=== PATIENT | female | born 1945 | race Caucasian/White ===

== ENCOUNTER → 2018-06-16 12:46 | Outpatient (CLI) | payer MEDICARE, SELFPAY | PROVIDERS: Family Provider Internal Medicine; PCP Internal Medicine; Visit Provider Internal Medicine | DX: E04.1 Nontoxic single thyroid nodule (principal) | CPT/HCPCS: 76536 ==

== ENCOUNTER → 2018-07-01 09:00 | Outpatient (CLI) | payer MEDICARE, SELFPAY ==
--- NOTE | 2018-07-01 09:00 | ASPS_PTH ---
PATIENT: JAN BURKS LOC: PHI U#:[id number] AGE/SX: 79/F ROOM: RE07/01/[address]: Dr. León Woo MD : 1945 BED: DIS: SPEC #: [id number] RECD: 07/01/18 11:29 STATUS: ZAHIRA RESerafin #: [id number] ITA: 07/01/18 09:[address]: León Woo DEPT: CYTOLOGY RECD BY: Trevor Silverman ENTERED: 07/03/18 10:47 SP TYPE: ASPIRATION OTHR DR: Dr. Kate Molina, DO Tissues: A - Thyroid gland, NOS B - Thyroid gland, NOS Procedures: Pap Stain (control) Special Stain Group II Cytology Other HEADER OPERATION: Fine needle aspiration of bilateral thyroid nodules PRE-OP DIAGNOSIS: Multinodular goiter (nontoxic) E04.2 TISSUE SUBMITTED: A ? Right thyroid nodule 12 slides, B ? Left thyroid nodule 12 slides DIAGNOSIS CYTOLOGY A. Fine needle aspiration, right thyroid nodule (smears): Adequate for evaluation. Consistent with follicular nodule with chronic lymphocytic thyroiditis. Minimal colloid material present. B. Fine needle aspiration, left thyroid nodule (smears): Adequate for evaluation. Negative, consistent with benign colloid nodule. AM:madi 07/04/18 CYTOLOGY STUDY Slides are reviewed. CYTOLOGY GROSS A. Received are 12 smears labeled with the patient's name and designated per the requisition as right thyroid nodule. Submitted for staining. B. Received are 12 smears labeled with the patient's name and designated per the requisition as left thyroid nodule. Submitted for staining. 07/03/18 TC:5 CPT: 07809 x2
== END ==
PROVIDERS: Family Provider Internal Medicine; PCP Internal Medicine; Visit Provider Surgery
DX: E04.2 Nontoxic multinodular goiter (principal)
CPT/HCPCS: 88161; 88313

== ENCOUNTER → 2019-03-20 | Outpatient (CLI) | payer MEDICARE, SELFPAY ==
[2018-06-21 14:54] VITALS: BMI 28.3
--- NOTE | 2019-03-20 11:30 | LES_PTH ---
PATIENT: JAN BURKS LOC: PHI U#:[id number] AGE/SX: 73/F ROOM: RE03/20/[address]: Dr. Jaswinder Bach MD : 1945 BED: DIS: 03/20/2019 SPEC #: [id number] RECD: 03/20/19 12:11 STATUS: ZAHIRA WENDI #: [id number] ITA: 03/20/19 11:[address]: Jaswinder Bach DEPT: SURGICAL PATHOLOGY RECD BY: Dipika Noyola ENTERED: 03/20/19 13:41 SP TYPE: Lesion OTHR DR: Dr. Kate Molina, DO Tissues: Skin of face, NOS Procedures: Surgery Specimen Level IV HEADER OPERATION: Excisional biopsy of cheek lesion PRE-OP DIAGNOSIS: Slow growth, nonhealing lesion, suspect basal cell cancer TISSUE SUBMITTED: LLL lesion MICROSCOPIC DIAGNOSIS Left lower eyelid lesion, biopsy: Consistent with seborrheic keratosis. AM:madi 03/21/19 MICROSCOPIC DESCRIPTION Slides are reviewed. GROSS DESCRIPTION Received is one container labeled with the patient's name and not further designated. The specimen consists of an irregular fragment of light euceda soft tissue measuring 0.5 x 0.3 x 0.1 cm. The specimen is totally submitted in one cassette. / AM:madi 03/20/19 TC:5 CPT: 52783
== END | disposition home or self-care (01) ==
PROVIDERS: Family Provider Internal Medicine; PCP Internal Medicine; Referring Provider Ophthalmology; Visit Provider Ophthalmology
DX: L98.9 Disorder of the skin and subcutaneous tissue, unspecified (principal)
CPT/HCPCS: 88305

== ENCOUNTER → 2019-04-17 | Outpatient (CLI) | payer MEDICARE, SELFPAY ==
[2018-06-21 14:54] VITALS: BMI 28.3
--- NOTE | 2019-04-17 10:55 | BD_ITS ---
STUDY: DUAL ENERGY X-RAY ABSORPTIOMETRY / DXA REASON FOR EXAM: Female, 73 years old. The patient is postmenopausal. Loss of height. TECHNIQUE: Bone Mineral Density (BMD) measurements of lumbar spine and bilateral hips were obtained. COMPARISON: Comparison is made with prior study dated March 01, 2017. FINDINGS: Lumbar Spine (L1-L4): g/cm2 (0.894) / T-score (-2.4) / Z-score (-0.7) Findings are suggestive of osteopenia with a high fracture risk. Left Femur Total: g/cm2 (0.762) / T-score (-1.9) / Z-score (-0.4) Left Femoral Neck: g/cm2 (0.674) / T-score (-2.6) / Z-score (-0.8) Right Femur Total: g/cm2 (0.761) / T-score (-2.0) / Z-score (-0.4) Right Femoral Neck: g/cm2 (0.698) / T-score (-2.4) / Z-score (-0.6) The T-Scores on the most recent prior examination were: Lumbar Spine (L1-L4): There has been improvement of bone density since the previous examination. Left Femur Total: which represents a worsening of 1.8%. Right Femur Total: which represents a worsening of 0.9%. BD/Dexa Bone Density Study IMPRESSION: The patient is considered osteoporotic as outlined below according to World Noah Organization (WHO) criteria with a high fracture risk. There has been worsening of bone density since the previous examination. Reference Information: The T-score is the number of standard deviations above or below the standard which is normal for young adults at their peak bone mineral density. The World Health Organization (WHO) interprets the T-scores as follows: Above -1 Normal bone density Between -1 and -2.5 Osteopenia Equal to / or below -2.5 Osteoporosis As a practical clinical guideline, osteopenia may be graded as follows: Mild -1 through -1.5 Moderate -1.6 through -2.0 Severe -2.1 through -2.4 The Z-score is the number of standard deviations above or below age-matched controls. A Z-score of less than -1.5 would be considered abnormal. References: 1. NIH Osteoporosis and Related Bone Diseases http://www.osteo.org 2. International Society for Clinical Densitometry http://www.iscd.org 3. National Osteoporosis Foundation http://www.nof.org Electronically Signed: Collin Rasmussen, at 15:45 EDT , Service support ,
== END | disposition home or self-care (01) ==
LOC: OPBD 10:34
PROVIDERS: Family Provider Internal Medicine; PCP Internal Medicine; Referring Provider Internal Medicine; Visit Provider Internal Medicine
DX: Z78.0 Asymptomatic menopausal state (principal)
CPT/HCPCS: 77080

== ENCOUNTER → 2019-05-09 | Outpatient (CLI) | payer SELFPAY ==
[2018-06-21 14:54] VITALS: BMI 28.3
--- NOTE | 2019-05-09 14:53 | CT_ITS ---
tyHISTORY: Hyperlipidemia, calcium scoring, limited chest over read CT Heart Quantitative coronary calcium W/O contrast TECHNIQUE: Cone-down chest CT axial imaging performed without contrast to assess calcium scoring. # of images incl. paperwork: 136 COMPARISON: Chest x-ray 02/02/2016 FINDINGS: CALCIUM SCORE: Reported separately. HEART SCAN FINDINGS: The heart is normal in size.No pericardial effusion, small amount of fluid within the pericardial recess..Visualized thoracic aorta is non-aneurysmal. LUNG SCAN FINDINGS: Upper and lower lung loya not included in the study.Visualized lungs are unremarkable without evidence of consolidation, mass, significant nodularity, or interstitial lung disease. OTHER: Visualized osseous structures demonstrate no destructive sclerotic or lytic lesions. CT/Limited Chest CT w/CCTA IMPRESSION: 1. Unremarkable exam. Individualized dose optimization techniques were used for this CT. at 1625 Reported and signed by: Axel Velázquez MD Electronically Signed: Axel Velázquez MD at 16:24 EDT Tel , Service support ,
[2019-05-09 15:02] VITALS: BP 107/68; PULSE 58; RESP 16; O2SAT 100; BMI 28.3
--- NOTE | 2019-05-10 09:59 | CA.SCORE ---
Calcium Scoring Date of Study:: 05/09/19 Coronary Calcium Scoring: High-resolution Computed Tomographic imaging of the chest was performed on [ ], with particular attention paid to the coronary arteries. Images from the examination were analyzed for the presence and extent of coronary artery calcification , using coronary calcium quantification software. The patient tolerated the procedure well and there were no complications. The results of the coronary calcification analysis are provided below. - Findings Left Main (LM): 0 Left Anterior Descending (LAD): 11.1 Left Circumflex (LCX): 0 Right Coronary Artery (RCA): 0 Total Agatston Score: 11.1 Percentile Rankin - Conclusion Calcium Scoring Interpretation: Calcium Score Interpretation 11-100 Mild plaque burden. Likely mild or minimal coronary atherosclerosis.
== END | disposition home or self-care (01) ==
LOC: CT 14:48
PROVIDERS: Family Provider Internal Medicine; PCP Internal Medicine; Referring Provider Internal Medicine; Visit Provider Internal Medicine
DX: E78.5 Hyperlipidemia, unspecified (principal)
CPT/HCPCS: 75571; 76380

== ENCOUNTER → 2019-06-11 | Outpatient (CLI) | payer MEDICARE, SELFPAY ==
[2019-05-09 15:02] VITALS: BMI 28.3
--- NOTE | 2019-06-11 10:20 | US_ITS ---
STUDY: THYROID ULTRASOUND REASON FOR EXAM: Female, 73 years old. Thyroid nodules TECHNIQUE: Ultrasound evaluation of the thyroid was performed with real-time and static romano-scale imaging. COMPARISON: June 16, 2018, August 20, 2016 thyroid ultrasound FINDINGS: RIGHT LOBE: The right lobe of the thyroid gland measures 4.7 x 1.8 x 2.4 cm. There is a heterogeneous echotexture. Is a lobulated appearance of the right side thyroid gland with no particular dominant mass. There is a 6 x 5 x 3 mm small nodule with a hypoechoic periphery and a hyperechoic center. There is a lobulated enlarged appearance of the thyroid gland with areas of increased vascularity. LEFT LOBE: The left lobe of the thyroid gland measures 5.3 x 2.6 x 2.8 cm. There is a heterogeneous echotexture. On the left side there is a dominant appearing inhomogeneous nodule that measures 3.7 x 2.4 cm this is relatively similar in appearance to the prior studies. ISTHMUS: The isthmus measures 1.8 cm. This measurement includes a well-circumscribed nodule that measures 2.2 x 1.9 x 1.0 cm stable since prior studies. The regional lymph nodes are normal. US/Thyroid IMPRESSION: Thyroid goiter with a stable dominant mass in the left side and within the isthmus. Electronically Signed: Sarah Rahman MD at 17:11 EDT Tel , Service support ,
== END | disposition home or self-care (01) ==
LOC: US 10:19
PROVIDERS: Family Provider Internal Medicine; PCP Internal Medicine; Referring Provider Internal Medicine; Visit Provider Internal Medicine
DX: E04.1 Nontoxic single thyroid nodule (principal)
CPT/HCPCS: 76536

== ENCOUNTER → 2020-06-18 09:08 | Outpatient (CLI) | payer MEDICARE, SELFPAY ==
[2019-05-09 15:02] VITALS: BMI 28.3
--- NOTE | 2020-06-18 09:11 | US_ITS ---
STUDY: THYROID ULTRASOUND REASON FOR EXAM: Female, 74 years old. Follow-up NODULE TECHNIQUE: Ultrasound evaluation of the thyroid was performed with real-time and static romano-scale imaging. COMPARISON: 06/11/2019 FINDINGS: RIGHT LOBE: The right lobe of the thyroid gland measures 5.2 x 2.0 x 1.7 cm. There is a heterogeneous echotexture. There are scattered stable nodules the largest measuring up to 6 x 3 x 5 mm unchanged since the prior examination. LEFT LOBE: The left lobe of the thyroid gland measures 5.5 x 2.4 x 3.0 cm. There is a heterogeneous echotexture. There is a stable dominant nodule within the left lobe of the gland measuring 4.0 x 2.2 x 2.2 cm. ISTHMUS: The isthmus measures 6.0 mm. There is a stable well-circumscribed nodule within the isthmus right of midline measuring 2.3 x 1.9 x 1.0 cm. US/Thyroid IMPRESSION: Enlarged heterogenous thyroid suggestive of a history of thyroiditis. Stable bilateral thyroid nodules. Electronically Signed: Nuria Arambula MD at 21:46 EDT Tel , Service support ,
== END ==
PROVIDERS: PCP Internal Medicine; Referring Provider Internal Medicine; Visit Provider Internal Medicine
DX: E04.1 Nontoxic single thyroid nodule (principal)
CPT/HCPCS: 76536

== ENCOUNTER 2023-05-20 07:51 | Outpatient (CLI) | payer MEDICARE, SELFPAY ==
[2023-05-20 09:59] LABS: Absolute Lymphocyte Count 1.93 X10^3/uL (0.83-4.51); Absolute Neutrophil Count 2.2 X10^3/uL (2.0-7.7); Basophil# 0.02 X10^3/uL; Basophil% 0.4 % (0-1); Eosinophil# 0.05 X10^3/uL; Eosinophils% 1.1 % (0-5); Hematocrit 40.3 % (37-47); Hemoglobin 13.3 g/dL (12.0-15.0); Lymphocyte # 1.93 X10^3/ul (0.83-4.51); Lymphocyte % 41.2 % (19-41); Mean Corpuscular Hgb 30.7 pg (27.0-32.0); Mean Corpuscular Volume 93.1 fL (81-99); Mean Platelet Vol. 9.3 fl (6.2-12.0); Monocyte# 0.48 X10^3/uL; Monocyte% 10.3 % (0-10); NRBC Flagged by Analyzer 0 % (0-5); Neutrophil # 2.19 X10^3/uL (2.7-7.7); Neutrophil % 46.8 % (47-70); Platelet Count 338 K/mm3 (150-450); RBC Distribution Width CV 12.2 % (11.6-14.6); RBC Distribution Width SD 42.5 fl (35.1-43.9); Red Blood Count 4.33 M/mm3 (4.2-5.4); White Blood Count 4.7 K/mm3 (4.4-11.0)
[2023-05-20 10:13] LABS: Vitamin B12 670 pg/mL (211-911); Vitamin D,25 Hydroxy 64.3 ng/mL
[2023-05-20 10:31] LABS: ALB/GLOB Ratio 1.1 RATIO (0.9-2.4); AST(SGOT) 20 U/L (15-37); Alanine Aminotransfer ALT/SGPT 24 U/L (13-56); Albumin, Serum 3.8 g/dL (3.2-5.0); Alkaline Phosphatase 86 U/L (45-117); Anion Gap 7 (5-15); BUN 9 mg/dL (7-18); BUN/Creat Ratio 14.2 RATIO (10-20); Calcium,Total 9.2 mg/dL (8.5-10.1); Chloride 101 mmol/L (98-107); Cholesterol 207 mg/dL (200); Creatinine, Serum 0.63 mg/dL (0.55-1.02); EST Glomerular Filtration Rate 97 mL/min (>60); Est Glom Filt Rate - Afr Amer 117 mL/min (>60); Ferritin 55 ng/mL (8-252); Globulin 3.5 g/dL (2.2-4.2); Glucose 91 mg/dL (74-106); High Density Lipoprotein 61 mg/dL; Potassium 3.7 mmol/L (3.5-5.1); Protein, Total 7.3 g/dL (6.4-8.2); Sodium Level 134 mmol/L (136-145); Thyroid Stim Hormone (TSH) 2.19 uIU/mL (0.358-3.74); Triglycerides 58 mg/dL; Very Low Density Lipoprotein 12 mg/dL (5-40)
== END 2023-05-20 23:59 | disposition home or self-care (01) ==
LOC: MTLAB 07:54
PROVIDERS: PCP Family Medicine; Referring Provider Family Medicine; Visit Provider Family Medicine
DX: Z13.220 Encounter for screening for lipoid disorders (principal); E03.9 Hypothyroidism, unspecified; Z78.9 Other specified health status; M81.0 Age-related osteoporosis without current pathological fracture
CPT/HCPCS: 36415; 80050; 80053; 80061; 82306; 82607; 82728; 84443; 85025

== ENCOUNTER → 2023-06-14 | Outpatient (CLI) | payer MEDICARE, SELFPAY ==
--- NOTE | 2023-06-14 14:54 | BD_ITS ---
STUDY: DUAL ENERGY X-RAY ABSORPTIOMETRY / DXA REASON FOR EXAM: Female, 77 years old. M810 TECHNIQUE: Bone Mineral Density (BMD) measurements of lumbar spine and bilateral hips were obtained. COMPARISON: Comparison is made with prior study dated April 17, 2019. FINDINGS: Lumbar Spine (L1-L4): g/cm2 (0.757) / T-score (-2.6) / Z-score (-0.1) Findings are suggestive of osteoporosis with a high fracture risk. Left Femur Total: g/cm2 (0.658) / T-score (-2.3) / Z-score (-0.4) Left Femoral Neck: g/cm2 (0.518) / T-score (-3.0) / Z-score (-0.8) Right Femur Total: g/cm2 (0.654) / T-score (-2.4) / Z-score (-0.5) Right Femoral Neck: g/cm2 (0.528) / T-score (-2.9) / Z-score (-0.7) The T-Scores on the most recent prior examination were: Lumbar Spine (L1-L4): There has been worsening of bone density since the previous examination. Left Femur Total: which represents a worsening of 6.4%. Right Femur Total: which represents a worsening of 6.9%. BD/Dexa Bone Density Study IMPRESSION: The patient is considered osteoporotic as outlined below according to World [place] Organization (WHO) criteria with a high fracture risk. There has been worsening of bone density since the previous examination. Reference Information: The T-score is the number of standard deviations above or below the standard which is normal for young adults at their peak bone mineral density. The World Health Organization (WHO) interprets the T-scores as follows: Above -1 Normal bone density Between -1 and -2.5 Osteopenia Equal to / or below -2.5 Osteoporosis As a practical clinical guideline, osteopenia may be graded as follows: Mild -1 through -1.5 Moderate -1.6 through -2.0 Severe -2.1 through -2.4 The Z-score is the number of standard deviations above or below age-matched controls. A Z-score of less than -1.5 would be considered abnormal. References: 1. NIH Osteoporosis and Related Bone Diseases www osteo.org 2. International Society for Clinical Densitometry www iscd.org 3. National Osteoporosis Foundation www nof.org Electronically Signed: Collin Rasmussen MD at 15:02 EDT ,
== END | disposition home or self-care (01) ==
LOC: OPBD 14:46
PROVIDERS: PCP Family Medicine; Referring Provider Family Medicine; Visit Provider Family Medicine
DX: M81.0 Age-related osteoporosis without current pathological fracture (principal)
CPT/HCPCS: 77080

== ENCOUNTER 2023-07-05 11:30 | Outpatient (RCR) | payer MEDICARE, SELFPAY ==
--- NOTE | 2023-06-30 14:10 | HP.PTEVAL ---
Patient's Visit Information Visit Information Visit Information: JAN BURKS is a 77 year old F referred to Physical Therapy by Madelin Davis DO with a diagnosis of OSTEOPOROSIS. Date of Evaluation: 06/30/23 Physical Therapist: Ángela Shepherd PT, Cert MDT Visit Plan Frequency: 1x/Week Duration: 2 Weeks Plan: INSTRUCTION IN PROPER POSTURE CONTROL AND BODY MECHANICS. REVIEW PATIENTS CURRENT INDEP EX PROGRAM FOR PROPER TECHNIQUE. HOME EX PROGRAM INSTRUCTION FOR GENERAL STRENGHTENING WEIGHT BEARING EX'S FOR OSTEOPOROSIS WITH FOCUS ON GOOD TECHNIQUE OF NEW EX'S GIVEN AND CURRENT EX'S PATIENT HAS BEEN DOING INDEP'LY. Subjective Subjective: THIS PATIENT PRESENTS TO PHYSICAL THERAPY REPORTING SHE WAS DX'D WITH OSTEOPOROSIS ABOUT 20 YEARS AGO AND PATIENT REPORTS IT HAS SLIGHTLY PROGRESSED OVER THE YEARS. SHE REPORTS SHE DOES A DAILY EXERCISE ROUTINE INDOORS. IT IS ABOUT 30 MINUTES AND SHE STATES SHE LEARNED IT THROUGH [employer] AND SHE USES 6 LB HAND WEIGHTS AND A TRAMPOLINE. SHE DENIES PAIN OR FUNCTIONAL LIMITATIONS. SHE REPORTS SHE ISN'T SURE WHY THE DOCTOR SENT HER HERE BUT SHE IS WILLING TO SEE IF SHE NEEDS TO BE DOING ANYTHING DIFFERENT. SHE DENIES ANY OTHER MEDICAL PROBLEMS. Objective Objective: THIS PATIENT AMBULATES INDEP'LY INTO PHYSICAL THERAPY WITHOUT ANY AD'S, LOB OR GROSS DEVIATIONS NOTED. SHE IS ABLE TO INDEP'LY TRANSFER FROM SIT TO STAND WITHOUT UE ASSIST. SHE IS ABLE TO INDEP'LY TRANSFER DOWN TO THE FLOOR AND BACK UP AGAIN WITHOUT DIFFICULTY. GINA UE ROM AND STRENGTH IS WFL. LUMBAR ROM IS WFL ALL PLANES EXCEPT MODERATE MVMT LOSS INTO EXTENSION. PATIENT DENIES PAIN WITH ALL TESTING. PATIENT DEMONSTRATED HER HOME EX ROUTINE FOR THIS PT AND IT IS APPARENT THAT THERE ARE EX TECHNIQUES THAT CAN BE IMPROVED AND THAT THERE ARE ADDITIONAL EX'S THAT ARE RECOMMENED FOR HER DIAGNOSIS. 2 FOLLOW UP PT VISITS ARE RECOMMENDED AND PATIENT IS AGREEABLE. TREATMENT: PATIENT WAS SEEN TODAY FOR FURTHER EDUCATION ABOUT THE TYPE OF EX BENEFICIAL FOR OSTEOPOROSIS AND INSTRUCTED IN STANDING HIP EXTENSION, SUPINE BRIDGES AND SIT TO STAND EXERCISES TO ADD TO HER HOME EX PROGRAM. WRITTEN HEP INSTRUCTIONS PROVIDED. PATIENT DEMONSTRATED/COMMUNICATED A GOOD UNDERSTANDING OF ALL INSTRUCTIONS AFTER GIVEN. Balance/Special Test Scores Lower Extremity Functional Score: 71 Goals Goal 1:: PATIENT WILL BE INDEP WITH A HEP FOR OSTEOPOROSIS THAT IS SAFE FOR HER SPINE AND OTHER JOINTS. Goal Time Frame: 2 Weeks Anticipated Interventions Patient/Client Instruction: Educate patient on: Condition, Plan of Care, Risk Factors and Benefits of Fitness Program For the Purpose of:: To improve self management Therapeutic Exercise to Include: Strength training For the Purpose of:: To improve nutrient delivery to tissue Text: Thank you for the opportunity to evaluate your patient. For Medicare and Medicare HMO plans, please review the plan of care and approve it. It will need to be FAXED BACK to us at [phone] for Medicare purposes. For Medicare only, by signing this I certify the plan of care. Please let me know if there are questions or concerns regarding this plan of care. Physician Signature: Date:
== END 2023-07-05 19:00 | disposition home or self-care (01) ==
LOC: PT 11:30
PROVIDERS: PCP Family Medicine; Referring Provider Family Medicine; Visit Provider Family Medicine
DX: M81.0 Age-related osteoporosis without current pathological fracture (principal)
CPT/HCPCS: 97161; 97530

== ENCOUNTER → 2024-06-12 | Outpatient (CLI) | payer MEDICARE, SELFPAY ==
[2024-06-12 15:22] LABS: Absolute Lymphocyte Count 1.61 X10^3/uL (0.83-4.51); Basophil# 0.02 X10^3/uL; Basophil% 0.4 % (0-1); Eosinophil# 0.06 X10^3/uL; Eosinophils% 1.2 % (0-5); Hematocrit 43.8 % (37-47); Lymphocyte # 1.61 X10^3/ul (0.83-4.51); Lymphocyte % 31.6 % (19-41); Mean Corpuscular Hgb 30.4 pg (27.0-32.0); Mean Corpuscular Volume 95.2 fL (81-99); Mean Platelet Vol. 9.3 fl (6.2-12.0); Monocyte# 0.41 X10^3/uL; NRBC Flagged by Analyzer 0 % (0-5); Neutrophil # 2.98 X10^3/uL (2.7-7.7); Neutrophil % 58.4 % (47-70); Platelet Count 369 K/mm3 (150-450); RBC Distribution Width CV 12.5 % (11.6-14.6); RBC Distribution Width SD 43.5 fl (35.1-43.9); White Blood Count 5.1 K/mm3 (4.4-11.0)
[2024-06-12 15:41] LABS: Vitamin B12 240 pg/mL (211-911); Vitamin D,25 Hydroxy 58.8 ng/mL
[2024-06-12 15:50] LABS: ALB/GLOB Ratio 1.1 RATIO (0.9-2.4); AST(SGOT) 18 U/L (15-37); Alanine Aminotransfer ALT/SGPT 25 U/L (13-56); Albumin, Serum 3.9 g/dL (3.2-5.0); Alkaline Phosphatase 98 U/L (45-117); Anion Gap 6 (5-15); BUN 6 mg/dL (7-18); BUN/Creat Ratio 9.1 RATIO (10-20); Calcium,Total 9.3 mg/dL (8.5-10.1); Chloride 104 mmol/L (98-107); Cholesterol 260 mg/dL (200); Creatinine, Serum 0.66 mg/dL (0.55-1.02); EST Glomerular Filtration Rate 93 mL/min (>60); Est Glom Filt Rate - Afr Amer 112 mL/min (>60); Globulin 3.5 g/dL (2.2-4.2); Glucose 91 mg/dL (74-106); High Density Lipoprotein 60 mg/dL; Protein, Total 7.4 g/dL (6.4-8.2); Sodium Level 138 mmol/L (136-145); Triglycerides 145 mg/dL; Very Low Density Lipoprotein 29 mg/dL (5-40)
== END | disposition home or self-care (01) ==
PROVIDERS: PCP Family Medicine; Referring Provider Family Medicine; Visit Provider Family Medicine
DX: Z78.9 Other specified health status (principal); Z12.11 Encounter for screening for malignant neoplasm of colon; E03.9 Hypothyroidism, unspecified; M81.0 Age-related osteoporosis without current pathological fracture; E78.5 Hyperlipidemia, unspecified
CPT/HCPCS: 36415; 80053; 80061; 82306; 82607; 84443; 85025

== ENCOUNTER → 2025-06-13 | Outpatient (CLI) | payer MEDICARE, SELFPAY ==
[2025-06-13 13:21] LABS: AST(SGOT) 22 U/L (<=31); Alanine Aminotransfer ALT/SGPT 16 U/L (<=34); Albumin, Serum 4.5 g/dL (3.4-4.8); Alkaline Phosphatase 99 U/L (35-104); Anion Gap 13 (5-15); BUN 7 mg/dL (4-19); BUN/Creat Ratio 11.3 RATIO (10-20); Calcium,Total 10.0 mg/dL (7.6-11.0); Carbon Dioxide 24.9 mmol/L (21.0-32.0); Chloride 102 mmol/L (98-108); Cholesterol 239 mg/dL (<=200); Globulin 2.8 g/dL (2.2-4.2); Glucose 94 mg/dL (70-99); Low Density Lipoprotein Calc. 160 mg/dL; Potassium 3.8 mmol/L (3.3-5.1); Triglycerides 73 mg/dL; Very Low Density Lipoprotein 15 mg/dL (5-40); Vitamin D,25 Hydroxy 74.6 ng/mL (30-100); cholesterol:hdl ratio screen 3.71
== END | disposition home or self-care (01) ==
LOC: MTLAB 09:23
PROVIDERS: PCP Family Medicine
DX: Z00.00 Encounter for general adult medical examination without abnormal findings (principal); E03.9 Hypothyroidism, unspecified
CPT/HCPCS: 36415; 80053; 80061; 82306; 84443